=== PATIENT | male | born 2000 | race Caucasian/White ===

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

== ENCOUNTER 2024-04-03 18:14 | Emergency (ER) | payer OTHER, BC ==
[~2024-04-03] VITALS: Ht 185.4 cm; Wt 86.4 kg
[2024-04-03] MEDS ORDERED: SERT-141 PO (18:40)
[2024-04-03] MEDS ORDERED: CETI5TAB5 PO (18:40)
[2024-04-03] MEDS: DERMABOND TOPICAL SKIN ADHESIVE TOP ONE (19:35)
[2024-04-03 20:30] VITALS: BP 137/74; TEMP 98.3; O2SAT 100
== END 2024-04-03 20:45 | disposition home or self-care (01) ==
LOC: M ED 18:14 → EDBD 18:14 → M ED 20:45
DX: S01.81XA Laceration without foreign body of other part of head, initial encounter (principal); S00.83XA Contusion of other part of head, initial encounter; V44.5XXA Car driver injured in collision with heavy transport vehicle or bus in traffic accident, initial encounter; Y92.9 Unspecified place or not applicable; Y93.9 Activity, unspecified; Y99.9 Unspecified external cause status